=== PATIENT | male | born 1960 | race African-American/Black ===

== ENCOUNTER 2020-12-18 10:06 | Inpatient (IN) | payer OTHER ==
[2020-12-18 10:24] VITALS: BMI 20.2
[2020-12-18] MEDS ORDERED: hydrOXYzine PAMOATE 25 MG CAPSULE (FP) PO PRN (13:41)
[2020-12-18] MEDS ORDERED: guaiFENesin 200 MG/10 ML 10 ML UNIT-DOSE CUPS PO PRN (13:41)
[2020-12-18] MEDS ORDERED: IBUPROFEN 400 MG TABLET (FP) PO PRN (13:41)
[2020-12-18] MEDS ORDERED: NICOTINE POLACRILEX 2 MG GUM BC PRN (13:41)
[2020-12-18] MEDS ORDERED: MAGNESIUM CITRATE 300 ML BOTTLE PO PRN (13:41)
[2020-12-18] MEDS ORDERED: MAG HYDROX/AL HYDROX/SIMETH 30 ML UNIT-DOSE CUP PO PRN (13:41)
[2020-12-18] MEDS ORDERED: LOPERAMIDE HCL 2 MG CAPSULE PO PRN (13:41)
[2020-12-18] MEDS ORDERED: ACETAMINOPHEN 325 MG TABLET (FP) PO PRN (13:41)
[2020-12-18] MEDS ORDERED: MAGNESIUM HYDROX 2400MG/30ML ORAL SUSPENSION 30 ML CUP PO PRN (13:41)
[2020-12-18] MEDS ORDERED: P-EPHED 60MG/TRIPROLIDI 2.5MG TABLET PO PRN (13:41)
[2020-12-18] MEDS: THIAMINE HCL 100 MG TABLET (FP) PO SCH (21:10)
[2020-12-18] MEDS: MELATONIN 5 MG TABLETS PO SCH (21:10)
[2020-12-19] MEDS: PRENATAL VITAMINS W/ FOLIC ACID TABLET (FP) PO SCH (09:48)
[2020-12-19 10:42] LABS: HEMATOCRIT 37.4 % (35.4-49); MCH 31.5 pg (25.7-33.7); MCHC 34.8 g/dl (32.0-35.9); MEAN CELL VOLUME 90.6 fl (80-96); MEAN PLT VOLUME 8.6 fl (7.5-11.1); PLATELET COUNT 176 K/MM3 (134-434); RBC 4.12 M/mm3 (4.00-5.60); WHITE BLOOD COUNT 4.4 K/mm3 (4.0-10.0)
[2020-12-19 10:53] LABS: CALCIUM 8.1 mg/dL (8.5-10.1)
[2020-12-19 10:54] LABS: ALBUMIN 2.9 g/dl (3.4-5.0); BLOOD UREA NITROGEN 16.5 mg/dL (7-18)
[2020-12-19 10:56] LABS: CREATININE 0.9 mg/dL (0.55-1.3)
[2020-12-19 10:58] LABS: BILIRUBIN,TOTAL 0.6 mg/dL (0.2-1)
[2020-12-19 10:59] LABS: TOT PROT 5.8 g/dl (6.4-8.2)
[2020-12-19 14:24] LABS: HIV INTERPRETATION PRESUMPTIVE POSITIVE (NEGATIVE)
[2020-12-19] MEDS ORDERED: MASKS NR ONE (16:44)
[2020-12-19] MEDS: traZODone HCL 100 MG TABLET (FP) PO SCH (21:18)
[2020-12-19] MEDS: THIAMINE HCL 100 MG TABLET (FP) PO SCH (21:18)
[2020-12-19] MEDS: MELATONIN 5 MG TABLETS PO SCH (21:20)
[2020-12-20] MEDS: PRENATAL VITAMINS W/ FOLIC ACID TABLET (FP) PO SCH (09:59)
[2020-12-20] MEDS: DOCUSATE SODIUM 100 MG CAPSULE (FP) PO SCH ×2 (13:57→21:16)
[2020-12-20] MEDS: traZODone HCL 100 MG TABLET (FP) PO SCH (21:16)
[2020-12-20] MEDS: THIAMINE HCL 100 MG TABLET (FP) PO SCH (21:16)
[2020-12-20] MEDS: MELATONIN 5 MG TABLETS PO SCH (21:16)
[2020-12-21] MEDS: DOCUSATE SODIUM 100 MG CAPSULE (FP) PO SCH ×3 (06:25→21:43)
[2020-12-21] MEDS ORDERED: MASKS NR ONE (07:05)
[2020-12-21] MEDS: PRENATAL VITAMINS W/ FOLIC ACID TABLET (FP) PO SCH (09:35)
[2020-12-21] MEDS: THIAMINE HCL 100 MG TABLET (FP) PO SCH (21:43)
[2020-12-21] MEDS: traZODone HCL 100 MG TABLET (FP) PO SCH (21:43)
[2020-12-21] MEDS: MELATONIN 5 MG TABLETS PO SCH (21:43)
[2020-12-22 06:08] LABS: SARS-CoV-2 NAA Not Detected (Not Detected)
[2020-12-22] MEDS: DOCUSATE SODIUM 100 MG CAPSULE (FP) PO SCH ×3 (07:47→21:16)
[2020-12-22] MEDS: PRENATAL VITAMINS W/ FOLIC ACID TABLET (FP) PO SCH (09:37)
[2020-12-22] MEDS: MELATONIN 5 MG TABLETS PO SCH (21:15)
[2020-12-22] MEDS: THIAMINE HCL 100 MG TABLET (FP) PO SCH (21:16)
[2020-12-22] MEDS: traZODone HCL 100 MG TABLET (FP) PO SCH (21:16)
[2020-12-23] MEDS ORDERED: MASKS NR ONE (06:41)
[2020-12-23] MEDS: DOCUSATE SODIUM 100 MG CAPSULE (FP) PO SCH ×3 (06:42→21:32)
[2020-12-23] MEDS: PRENATAL VITAMINS W/ FOLIC ACID TABLET (FP) PO SCH (09:32)
[2020-12-23] MEDS: THIAMINE HCL 100 MG TABLET (FP) PO SCH (21:32)
[2020-12-23] MEDS: traZODone HCL 100 MG TABLET (FP) PO SCH (21:32)
[2020-12-23] MEDS: MELATONIN 5 MG TABLETS PO SCH (21:33)
[2020-12-24] MEDS: DOCUSATE SODIUM 100 MG CAPSULE (FP) PO SCH ×3 (06:43→21:09)
[2020-12-24] MEDS: PRENATAL VITAMINS W/ FOLIC ACID TABLET (FP) PO SCH (09:23)
[2020-12-24] MEDS: traZODone HCL 100 MG TABLET (FP) PO SCH (21:09)
[2020-12-24] MEDS: THIAMINE HCL 100 MG TABLET (FP) PO SCH (21:09)
[2020-12-24] MEDS: MELATONIN 5 MG TABLETS PO SCH (21:10)
[2020-12-25] MEDS: DOCUSATE SODIUM 100 MG CAPSULE (FP) PO SCH ×3 (06:42→21:01)
[2020-12-25] MEDS: PRENATAL VITAMINS W/ FOLIC ACID TABLET (FP) PO SCH (09:18)
[2020-12-25] MEDS: traZODone HCL 100 MG TABLET (FP) PO SCH (21:01)
[2020-12-25] MEDS: THIAMINE HCL 100 MG TABLET (FP) PO SCH (21:01)
[2020-12-25] MEDS: MELATONIN 5 MG TABLETS PO SCH (21:02)
[2020-12-26] MEDS: DOCUSATE SODIUM 100 MG CAPSULE (FP) PO SCH ×3 (06:56→21:35)
[2020-12-26] MEDS: PRENATAL VITAMINS W/ FOLIC ACID TABLET (FP) PO SCH (09:36)
[2020-12-26] MEDS: BICTEGRAV/EMTRICIT/TENOFOV (BIKTARVY) 50-200-25 MG TABLET PO SCH (16:01)
[2020-12-26] MEDS: CYPROHEPTADINE HCL 4 MG TABLET PO SCH (16:02)
[2020-12-26] MEDS: traZODone HCL 100 MG TABLET (FP) PO SCH (21:35)
[2020-12-26] MEDS: THIAMINE HCL 100 MG TABLET (FP) PO SCH (21:35)
[2020-12-26] MEDS: MELATONIN 5 MG TABLETS PO SCH (21:48)
[2020-12-27] MEDS: DOCUSATE SODIUM 100 MG CAPSULE (FP) PO SCH ×3 (07:08→21:48)
[2020-12-27] MEDS: CYPROHEPTADINE HCL 4 MG TABLET PO SCH ×3 (07:09→17:33)
[2020-12-27] MEDS: BICTEGRAV/EMTRICIT/TENOFOV (BIKTARVY) 50-200-25 MG TABLET PO SCH (07:10)
[2020-12-27] MEDS: PRENATAL VITAMINS W/ FOLIC ACID TABLET (FP) PO SCH (09:49)
[2020-12-27] MEDS: traZODone HCL 100 MG TABLET (FP) PO SCH (21:48)
[2020-12-27] MEDS: MELATONIN 5 MG TABLETS PO SCH (21:48)
[2020-12-27] MEDS: THIAMINE HCL 100 MG TABLET (FP) PO SCH (21:48)
[2020-12-28] MEDS: CYPROHEPTADINE HCL 4 MG TABLET PO SCH ×3 (06:58→17:39)
[2020-12-28] MEDS: DOCUSATE SODIUM 100 MG CAPSULE (FP) PO SCH ×3 (06:58→23:17)
[2020-12-28] MEDS: BICTEGRAV/EMTRICIT/TENOFOV (BIKTARVY) 50-200-25 MG TABLET PO SCH (07:00)
[2020-12-28] MEDS: PRENATAL VITAMINS W/ FOLIC ACID TABLET (FP) PO SCH (09:46)
[2020-12-28] MEDS ORDERED: PT OWN MED DRAWER 7, Y5N ONE (16:44)
[2020-12-28] MEDS: traZODone HCL 100 MG TABLET (FP) PO SCH (23:17)
[2020-12-28] MEDS: MELATONIN 5 MG TABLETS PO SCH (23:17)
[2020-12-28] MEDS: THIAMINE HCL 100 MG TABLET (FP) PO SCH (23:17)
[2020-12-29] MEDS: DOCUSATE SODIUM 100 MG CAPSULE (FP) PO SCH ×3 (07:01→21:19)
[2020-12-29] MEDS: CYPROHEPTADINE HCL 4 MG TABLET PO SCH ×3 (07:01→16:44)
[2020-12-29] MEDS: BICTEGRAV/EMTRICIT/TENOFOV (BIKTARVY) 50-200-25 MG TABLET PO SCH (07:40)
[2020-12-29] MEDS: PRENATAL VITAMINS W/ FOLIC ACID TABLET (FP) PO SCH (09:40)
[2020-12-29] MEDS: THIAMINE HCL 100 MG TABLET (FP) PO SCH (21:19)
[2020-12-29] MEDS: traZODone HCL 100 MG TABLET (FP) PO SCH (21:19)
[2020-12-29] MEDS: MELATONIN 5 MG TABLETS PO SCH (21:20)
[2020-12-30] MEDS: CYPROHEPTADINE HCL 4 MG TABLET PO SCH ×3 (06:51→16:52)
[2020-12-30] MEDS: DOCUSATE SODIUM 100 MG CAPSULE (FP) PO SCH ×3 (06:51→21:55)
[2020-12-30] MEDS: BICTEGRAV/EMTRICIT/TENOFOV (BIKTARVY) 50-200-25 MG TABLET PO SCH (07:54)
[2020-12-30] MEDS: PRENATAL VITAMINS W/ FOLIC ACID TABLET (FP) PO SCH (09:34)
[2020-12-30 11:08] LABS: SARS-CoV-2 NAA Not Detected (Not Detected)
[2020-12-30] MEDS: THIAMINE HCL 100 MG TABLET (FP) PO SCH (21:55)
[2020-12-30] MEDS: traZODone HCL 100 MG TABLET (FP) PO SCH (21:55)
[2020-12-30] MEDS: MELATONIN 5 MG TABLETS PO SCH (22:09)
[2020-12-31] MEDS: CYPROHEPTADINE HCL 4 MG TABLET PO SCH ×3 (07:17→17:18)
[2020-12-31] MEDS: DOCUSATE SODIUM 100 MG CAPSULE (FP) PO SCH ×3 (07:17→21:46)
[2020-12-31] MEDS: BICTEGRAV/EMTRICIT/TENOFOV (BIKTARVY) 50-200-25 MG TABLET PO SCH (07:20)
[2020-12-31] MEDS: PRENATAL VITAMINS W/ FOLIC ACID TABLET (FP) PO SCH (09:41)
[2020-12-31] MEDS: traZODone HCL 100 MG TABLET (FP) PO SCH (21:46)
[2020-12-31] MEDS: MELATONIN 5 MG TABLETS PO SCH (21:46)
[2020-12-31] MEDS: THIAMINE HCL 100 MG TABLET (FP) PO SCH (21:46)
[2021-01-01] MEDS: DOCUSATE SODIUM 100 MG CAPSULE (FP) PO SCH ×3 (06:45→21:12)
[2021-01-01] MEDS: CYPROHEPTADINE HCL 4 MG TABLET PO SCH ×3 (06:46→17:56)
[2021-01-01] MEDS: BICTEGRAV/EMTRICIT/TENOFOV (BIKTARVY) 50-200-25 MG TABLET PO SCH (07:11)
[2021-01-01] MEDS: PRENATAL VITAMINS W/ FOLIC ACID TABLET (FP) PO SCH (09:54)
[2021-01-01] MEDS: traZODone HCL 100 MG TABLET (FP) PO SCH (21:12)
[2021-01-01] MEDS: THIAMINE HCL 100 MG TABLET (FP) PO SCH (21:12)
[2021-01-01] MEDS: MELATONIN 5 MG TABLETS PO SCH (21:13)
[2021-01-02 07:12] VITALS: BP 107/69; PULSE 72; TEMP 98.1
[2021-01-02] MEDS: CYPROHEPTADINE HCL 4 MG TABLET PO SCH (07:22)
[2021-01-02] MEDS: DOCUSATE SODIUM 100 MG CAPSULE (FP) PO SCH (07:23)
[2021-01-02] MEDS: BICTEGRAV/EMTRICIT/TENOFOV (BIKTARVY) 50-200-25 MG TABLET PO SCH (07:23)
[2021-01-02] MEDS: PRENATAL VITAMINS W/ FOLIC ACID TABLET (FP) PO SCH (10:05)
== END 2021-01-02 10:14 | disposition home or self-care (01) | DRG 772 ==
LOC: YASAS 10:06 → Y3E 13:28 → Y5N 16:32
PROVIDERS: ADMIT Allergy & Immunology; ATTEND Allergy & Immunology
PROC: HZ42ZZZ Group Counseling for Substance Abuse Treatment, Cognitive-Behavioral (ICD-10-PCS; principal; 2020-12-18)
DX: F10.20 Alcohol dependence, uncomplicated (principal); F14.20 Cocaine dependence, uncomplicated; F17.210 Nicotine dependence, cigarettes, uncomplicated; F33.1 Major depressive disorder, recurrent, moderate; F19.282 Other psychoactive substance dependence with psychoactive substance-induced sleep disorder; F19.24 Other psychoactive substance dependence with psychoactive substance-induced mood disorder; Z21 Asymptomatic human immunodeficiency virus [HIV] infection status; K64.9 Unspecified hemorrhoids; R76.11 Nonspecific reaction to tuberculin skin test without active tuberculosis; Z62.810 Personal history of physical and sexual abuse in childhood; Z86.19 Personal history of other infectious and parasitic diseases
CPT/HCPCS: 36415; 71046-TC-FY; 80053; 85027; 86593; 86780; 87389; C9803; U0003; U0005

== ENCOUNTER 2022-10-19 18:26 | Inpatient (IN) | payer OTHER ==
[2022-10-19 21:03] VITALS: BMI 19.8
[2022-10-19] MEDS ORDERED: IBUPROFEN 400 MG TABLET (FP) PO PRN (22:11)
[2022-10-19] MEDS ORDERED: P-EPHED 60MG/TRIPROLIDI 2.5MG TABLET PO PRN (22:11)
[2022-10-19] MEDS ORDERED: MAGNESIUM HYDROX 2400MG/30ML ORAL SUSPENSION 30 ML CUP PO PRN (22:11)
[2022-10-19] MEDS ORDERED: ACETAMINOPHEN 325 MG TABLET (FP) PO PRN (22:11)
[2022-10-19] MEDS ORDERED: NICOTINE POLACRILEX 2 MG GUM BC PRN (22:11)
[2022-10-19] MEDS ORDERED: MAG HYDROX/AL HYDROX/SIMETH 30 ML UNIT-DOSE CUP PO PRN (22:11)
[2022-10-19] MEDS ORDERED: LOPERAMIDE HCL 2 MG CAPSULE PO PRN (22:11)
[2022-10-19] MEDS ORDERED: hydrOXYzine PAMOATE 25 MG CAPSULE (FP) PO PRN (22:11)
[2022-10-19] MEDS ORDERED: POLYETHYLENE GLYCOL (HEALTHYLAX) 3350 17 GM PACKET PO PRN (22:11)
[2022-10-20] MEDS: MELATONIN 5 MG TABLETS PO SCH ×2 (01:17→21:25)
[2022-10-20] MEDS: guaiFENesin 200 MG/10 ML 10 ML UNIT-DOSE CUPS PO PRN ×2 (01:19→10:04)
[2022-10-20] MEDS: NICOTINE 14 MG/24 HOURS TOPICAL PATCH TD SCH (10:03)
[2022-10-20] MEDS: PRENATAL VITAMINS W/ FOLIC ACID TABLET (FP) PO SCH (10:03)
[2022-10-20] MEDS: BICTEGRAV/EMTRICIT/TENOFOV (BIKTARVY) 50-200-25 MG TABLET PO SCH (10:40)
[2022-10-20] MEDS: THIAMINE HCL 100 MG TABLET (FP) PO SCH (21:25)
[2022-10-20] MEDS: traZODone HCL 100 MG TABLET (FP) PO SCH (21:26)
[2022-10-20 22:04] LABS: URINE APPEARANCE CLEAR; URINE BILIRUBIN NEGATIVE (NEGATIVE); URINE COLOR YELLOW; URINE GLUCOSE (UA) NEGATIVE (NEGATIVE); URINE KETONE NEGATIVE (NEGATIVE); URINE LEUK ESTERASE NEGATIVE (NEGATIVE); URINE NITRITE NEGATIVE (NEGATIVE); URINE PROTEIN NEGATIVE (NEGATIVE); URINE UROBILINOGEN 0.2 mg/dL (0.2-1.0)
[2022-10-21] MEDS: BICTEGRAV/EMTRICIT/TENOFOV (BIKTARVY) 50-200-25 MG TABLET PO SCH (09:06)
[2022-10-21] MEDS: PRENATAL VITAMINS W/ FOLIC ACID TABLET (FP) PO SCH (09:06)
[2022-10-21] MEDS: BENZOCAINE/MENTHOL (CHLORASEPTIC ) LOZENGE MM PRN (09:07)
[2022-10-21] MEDS: NICOTINE 14 MG/24 HOURS TOPICAL PATCH TD SCH (09:30)
[2022-10-21] MEDS: MELATONIN 5 MG TABLETS PO SCH (21:18)
[2022-10-21] MEDS: traZODone HCL 100 MG TABLET (FP) PO SCH (21:18)
[2022-10-21] MEDS: THIAMINE HCL 100 MG TABLET (FP) PO SCH (21:18)
[2022-10-21] MEDS: guaiFENesin 200 MG/10 ML 10 ML UNIT-DOSE CUPS PO PRN (22:04)
[2022-10-22] MEDS ORDERED: NICOTINE 14 MG/24 HOURS TOPICAL PATCH TD PRN (08:51)
[2022-10-22] MEDS: BICTEGRAV/EMTRICIT/TENOFOV (BIKTARVY) 50-200-25 MG TABLET PO SCH (10:25)
[2022-10-22] MEDS: PRENATAL VITAMINS W/ FOLIC ACID TABLET (FP) PO SCH (10:25)
[2022-10-22] MEDS: BENZOCAINE/MENTHOL (CHLORASEPTIC ) LOZENGE MM PRN (14:16)
[2022-10-22] MEDS: guaiFENesin 200 MG/10 ML 10 ML UNIT-DOSE CUPS PO PRN (14:16)
[2022-10-22 14:53] LABS: HEMATOCRIT 37.5 % (35.4-49); HEMOGLOBIN 12.3 GM/dL (11.7-16.9); MCH 30.6 pg (25.7-33.7); MCHC 32.9 g/dl (32.0-35.9); MEAN CELL VOLUME 92.9 fl (80-96); MEAN PLT VOLUME 9.6 fl (7.5-11.1); PLATELET COUNT 196 10^3/uL (134-434); RBC 4.03 M/mm3 (4.00-5.60); RDW 14.7 % (11.9-15.9)
[2022-10-22 15:16] LABS: CALCIUM 8.7 mg/dL (8.5-10.1)
[2022-10-22 15:17] LABS: ALBUMIN 2.9 g/dl (3.4-5.0)
[2022-10-22 15:21] LABS: BILIRUBIN,TOTAL 0.2 mg/dL (0.2-1)
[2022-10-22 16:15] LABS: SYPHILIS W/ RPR CONF REACTIVE (NONREACTIVE)
[2022-10-22] MEDS: MELATONIN 5 MG TABLETS PO SCH (21:29)
[2022-10-22] MEDS: THIAMINE HCL 100 MG TABLET (FP) PO SCH (21:29)
[2022-10-22] MEDS: traZODone HCL 100 MG TABLET (FP) PO SCH (21:31)
[2022-10-23 06:53] VITALS: RESP 20
[2022-10-23] MEDS: PRENATAL VITAMINS W/ FOLIC ACID TABLET (FP) PO SCH (10:07)
[2022-10-23] MEDS: BICTEGRAV/EMTRICIT/TENOFOV (BIKTARVY) 50-200-25 MG TABLET PO SCH (10:07)
[2022-10-23] MEDS ORDERED: COLLOIDAL OATMEAL 1 BAR EACH TP PRN (11:59)
[2022-10-23] MEDS: traZODone HCL 100 MG TABLET (FP) PO SCH (21:49)
[2022-10-23] MEDS: THIAMINE HCL 100 MG TABLET (FP) PO SCH (21:49)
[2022-10-23] MEDS: MELATONIN 5 MG TABLETS PO SCH (21:49)
[2022-10-24 06:49] VITALS: BP 132/80; PULSE 59; TEMP 97.2
== END 2022-10-24 07:30 | disposition home or self-care (01) | DRG 772 ==
LOC: SUATTDRO 18:26 → YASAS 18:26 → Y3E 10-20 00:52
PROVIDERS: ADMIT Allergy & Immunology; ATTEND Psychiatry & Neurology Pain Medicine
PROC: HZ42ZZZ Group Counseling for Substance Abuse Treatment, Cognitive-Behavioral (ICD-10-PCS; principal; 2022-10-20)
DX: F10.20 Alcohol dependence, uncomplicated (principal); F14.20 Cocaine dependence, uncomplicated; F17.210 Nicotine dependence, cigarettes, uncomplicated; F19.282 Other psychoactive substance dependence with psychoactive substance-induced sleep disorder; F19.24 Other psychoactive substance dependence with psychoactive substance-induced mood disorder; F32.9 Major depressive disorder, single episode, unspecified; B20 Human immunodeficiency virus [HIV] disease; Z79.899 Other long term (current) drug therapy; L85.3 Xerosis cutis; R76.11 Nonspecific reaction to tuberculin skin test without active tuberculosis
CPT/HCPCS: 36415; 71046-TC-FY; 80053; 81003; 85027; 86593; 86780; 86803; 93005; 93010; C9803-CS; U0003; U0005

== ENCOUNTER 2022-10-24 15:55 | Inpatient (IN) | payer OTHER ==
[2022-10-24 18:25] VITALS: BMI 20.7
[2022-10-24] MEDS ORDERED: IBUPROFEN 400 MG TABLET (FP) PO PRN (18:28)
[2022-10-24] MEDS ORDERED: P-EPHED 60MG/TRIPROLIDI 2.5MG TABLET PO PRN (18:28)
[2022-10-24] MEDS ORDERED: BENZOCAINE/MENTHOL (CHLORASEPTIC ) LOZENGE MM PRN (18:28)
[2022-10-24] MEDS ORDERED: LOPERAMIDE HCL 2 MG CAPSULE PO PRN (18:28)
[2022-10-24] MEDS ORDERED: NICOTINE 10 MG CARTRIDGE (INHALER) IH PRN (18:28)
[2022-10-24] MEDS ORDERED: MAG HYDROX/AL HYDROX/SIMETH 30 ML UNIT-DOSE CUP PO PRN (18:28)
[2022-10-24] MEDS ORDERED: ACETAMINOPHEN 325 MG TABLET (FP) PO PRN (18:28)
[2022-10-24] MEDS ORDERED: guaiFENesin 200 MG/10 ML 10 ML UNIT-DOSE CUPS PO PRN (18:28)
[2022-10-24] MEDS ORDERED: POLYETHYLENE GLYCOL (HEALTHYLAX) 3350 17 GM PACKET PO PRN (18:28)
[2022-10-24] MEDS: MELATONIN 5 MG TABLETS PO SCH (22:54)
[2022-10-24] MEDS: THIAMINE HCL 100 MG TABLET (FP) PO SCH (22:54)
[2022-10-25] MEDS: NICOTINE 7 MG/24 HOURS TOPICAL PATCH TD SCH (09:50)
[2022-10-25] MEDS: PRENATAL VITAMINS W/ FOLIC ACID TABLET (FP) PO SCH (09:50)
[2022-10-25] MEDS: BICTEGRAV/EMTRICIT/TENOFOV (BIKTARVY) 50-200-25 MG TABLET PO SCH (12:14)
[2022-10-25] MEDS: THIAMINE HCL 100 MG TABLET (FP) PO SCH (21:27)
[2022-10-25] MEDS: MELATONIN 5 MG TABLETS PO SCH (21:27)
[2022-10-25] MEDS: hydrOXYzine PAMOATE 25 MG CAPSULE (FP) PO PRN (21:28)
[2022-10-26 01:26] LABS: PH,URINE 7.5 (5.0-8.0); URINE APPEARANCE CLEAR; URINE BILIRUBIN NEGATIVE (NEGATIVE); URINE COLOR YELLOW; URINE GLUCOSE (UA) NEGATIVE (NEGATIVE); URINE KETONE NEGATIVE (NEGATIVE); URINE LEUK ESTERASE NEGATIVE (NEGATIVE); URINE NITRITE NEGATIVE (NEGATIVE); URINE PROTEIN NEGATIVE (NEGATIVE); URINE UROBILINOGEN 0.2 mg/dL (0.2-1.0)
[2022-10-26] MEDS: BICTEGRAV/EMTRICIT/TENOFOV (BIKTARVY) 50-200-25 MG TABLET PO SCH (07:33)
[2022-10-26] MEDS: PRENATAL VITAMINS W/ FOLIC ACID TABLET (FP) PO SCH (09:48)
[2022-10-26] MEDS: NICOTINE 7 MG/24 HOURS TOPICAL PATCH TD SCH (09:49)
[2022-10-26] MEDS: MELATONIN 5 MG TABLETS PO SCH (21:43)
[2022-10-26] MEDS: THIAMINE HCL 100 MG TABLET (FP) PO SCH (21:43)
[2022-10-27] MEDS: MAGNESIUM HYDROX 2400MG/30ML ORAL SUSPENSION 30 ML CUP PO PRN (07:02)
[2022-10-27] MEDS: BICTEGRAV/EMTRICIT/TENOFOV (BIKTARVY) 50-200-25 MG TABLET PO SCH (07:23)
[2022-10-27] MEDS: NICOTINE 7 MG/24 HOURS TOPICAL PATCH TD SCH (09:56)
[2022-10-27] MEDS: PRENATAL VITAMINS W/ FOLIC ACID TABLET (FP) PO SCH (09:56)
[2022-10-27] MEDS: MELATONIN 5 MG TABLETS PO SCH (21:45)
[2022-10-27] MEDS: THIAMINE HCL 100 MG TABLET (FP) PO SCH (21:45)
[2022-10-27] MEDS: hydrOXYzine PAMOATE 25 MG CAPSULE (FP) PO PRN (21:45)
[2022-10-28] MEDS: BICTEGRAV/EMTRICIT/TENOFOV (BIKTARVY) 50-200-25 MG TABLET PO SCH (07:50)
[2022-10-28] MEDS: MAGNESIUM HYDROX 2400MG/30ML ORAL SUSPENSION 30 ML CUP PO PRN (07:54)
[2022-10-28] MEDS: NICOTINE 7 MG/24 HOURS TOPICAL PATCH TD SCH (10:43)
[2022-10-28] MEDS: PRENATAL VITAMINS W/ FOLIC ACID TABLET (FP) PO SCH (10:43)
[2022-10-28] MEDS: THIAMINE HCL 100 MG TABLET (FP) PO SCH (21:14)
[2022-10-28] MEDS: traZODone HCL 50 MG TABLET (FP) PO SCH (21:14)
[2022-10-28] MEDS: DOCUSATE SODIUM 100 MG CAPSULE (FP) PO PRN (21:14)
[2022-10-29] MEDS: BICTEGRAV/EMTRICIT/TENOFOV (BIKTARVY) 50-200-25 MG TABLET PO SCH (07:04)
[2022-10-29] MEDS: NICOTINE 7 MG/24 HOURS TOPICAL PATCH TD SCH (10:28)
[2022-10-29] MEDS: PRENATAL VITAMINS W/ FOLIC ACID TABLET (FP) PO SCH (10:28)
[2022-10-29] MEDS: MAGNESIUM HYDROX 2400MG/30ML ORAL SUSPENSION 30 ML CUP PO PRN (10:30)
[2022-10-29] MEDS ORDERED: COLLOIDAL OATMEAL 1 BAR EACH TP PRN (15:40)
[2022-10-29] MEDS: THIAMINE HCL 100 MG TABLET (FP) PO SCH (21:35)
[2022-10-29] MEDS: hydrOXYzine PAMOATE 25 MG CAPSULE (FP) PO PRN (21:35)
[2022-10-29] MEDS: traZODone HCL 50 MG TABLET (FP) PO SCH (21:35)
[2022-10-29] MEDS: DOCUSATE SODIUM 100 MG CAPSULE (FP) PO PRN (21:35)
[2022-10-30] MEDS: BICTEGRAV/EMTRICIT/TENOFOV (BIKTARVY) 50-200-25 MG TABLET PO SCH (07:12)
[2022-10-30] MEDS: PRENATAL VITAMINS W/ FOLIC ACID TABLET (FP) PO SCH (10:16)
[2022-10-30] MEDS: NICOTINE 7 MG/24 HOURS TOPICAL PATCH TD SCH (10:16)
[2022-10-30] MEDS: THIAMINE HCL 100 MG TABLET (FP) PO SCH (21:10)
[2022-10-30] MEDS: DOCUSATE SODIUM 100 MG CAPSULE (FP) PO PRN (21:10)
[2022-10-30] MEDS: traZODone HCL 50 MG TABLET (FP) PO SCH (21:11)
[2022-10-31] MEDS: BICTEGRAV/EMTRICIT/TENOFOV (BIKTARVY) 50-200-25 MG TABLET PO SCH (07:28)
[2022-10-31] MEDS: PRENATAL VITAMINS W/ FOLIC ACID TABLET (FP) PO SCH (09:52)
[2022-10-31] MEDS: THIAMINE HCL 100 MG TABLET (FP) PO SCH (21:36)
[2022-10-31] MEDS: traZODone HCL 50 MG TABLET (FP) PO SCH (21:37)
[2022-11-01] MEDS: BICTEGRAV/EMTRICIT/TENOFOV (BIKTARVY) 50-200-25 MG TABLET PO SCH (07:06)
[2022-11-01] MEDS: PRENATAL VITAMINS W/ FOLIC ACID TABLET (FP) PO SCH (09:54)
[2022-11-01] MEDS: DOCUSATE SODIUM 100 MG CAPSULE (FP) PO PRN ×2 (09:55→21:22)
[2022-11-01] MEDS: THIAMINE HCL 100 MG TABLET (FP) PO SCH (21:22)
[2022-11-01] MEDS: traZODone HCL 50 MG TABLET (FP) PO SCH (21:22)
[2022-11-02] MEDS: BICTEGRAV/EMTRICIT/TENOFOV (BIKTARVY) 50-200-25 MG TABLET PO SCH (07:28)
[2022-11-02] MEDS: PRENATAL VITAMINS W/ FOLIC ACID TABLET (FP) PO SCH (09:48)
[2022-11-02] MEDS: traZODone HCL 50 MG TABLET (FP) PO SCH (21:42)
[2022-11-02] MEDS: THIAMINE HCL 100 MG TABLET (FP) PO SCH (21:43)
[2022-11-03] MEDS: BICTEGRAV/EMTRICIT/TENOFOV (BIKTARVY) 50-200-25 MG TABLET PO SCH (07:15)
[2022-11-03] MEDS: PRENATAL VITAMINS W/ FOLIC ACID TABLET (FP) PO SCH (09:56)
[2022-11-03] MEDS: THIAMINE HCL 100 MG TABLET (FP) PO SCH (22:04)
[2022-11-03] MEDS: traZODone HCL 50 MG TABLET (FP) PO SCH (22:04)
[2022-11-04] MEDS: BICTEGRAV/EMTRICIT/TENOFOV (BIKTARVY) 50-200-25 MG TABLET PO SCH (07:14)
[2022-11-04] MEDS: PRENATAL VITAMINS W/ FOLIC ACID TABLET (FP) PO SCH (09:37)
[2022-11-04] MEDS: THIAMINE HCL 100 MG TABLET (FP) PO SCH (21:35)
[2022-11-04] MEDS: traZODone HCL 50 MG TABLET (FP) PO SCH (21:35)
[2022-11-05] MEDS: BICTEGRAV/EMTRICIT/TENOFOV (BIKTARVY) 50-200-25 MG TABLET PO SCH (07:18)
[2022-11-05] MEDS: PRENATAL VITAMINS W/ FOLIC ACID TABLET (FP) PO SCH (09:43)
[2022-11-05] MEDS: MAGNESIUM HYDROX 2400MG/30ML ORAL SUSPENSION 30 ML CUP PO PRN (09:44)
[2022-11-05] MEDS: THIAMINE HCL 100 MG TABLET (FP) PO SCH (21:24)
[2022-11-05] MEDS: traZODone HCL 50 MG TABLET (FP) PO SCH (21:24)
[2022-11-05] MEDS: DOCUSATE SODIUM 100 MG CAPSULE (FP) PO PRN (21:24)
[2022-11-06] MEDS: BICTEGRAV/EMTRICIT/TENOFOV (BIKTARVY) 50-200-25 MG TABLET PO SCH (07:20)
[2022-11-06] MEDS: PRENATAL VITAMINS W/ FOLIC ACID TABLET (FP) PO SCH (09:42)
[2022-11-06] MEDS: hydrOXYzine PAMOATE 25 MG CAPSULE (FP) PO PRN (22:05)
[2022-11-06] MEDS: DOCUSATE SODIUM 100 MG CAPSULE (FP) PO PRN (22:06)
[2022-11-06] MEDS: THIAMINE HCL 100 MG TABLET (FP) PO SCH (22:06)
[2022-11-06] MEDS: traZODone HCL 50 MG TABLET (FP) PO SCH (22:06)
[2022-11-07] MEDS: BICTEGRAV/EMTRICIT/TENOFOV (BIKTARVY) 50-200-25 MG TABLET PO SCH (07:17)
[2022-11-07] MEDS: PRENATAL VITAMINS W/ FOLIC ACID TABLET (FP) PO SCH (10:11)
[2022-11-07] MEDS: traZODone HCL 50 MG TABLET (FP) PO SCH (21:13)
[2022-11-07] MEDS: DOCUSATE SODIUM 100 MG CAPSULE (FP) PO PRN (21:13)
[2022-11-07] MEDS: THIAMINE HCL 100 MG TABLET (FP) PO SCH (21:13)
[2022-11-07] MEDS: hydrOXYzine PAMOATE 25 MG CAPSULE (FP) PO PRN (21:14)
[2022-11-08] MEDS: BICTEGRAV/EMTRICIT/TENOFOV (BIKTARVY) 50-200-25 MG TABLET PO SCH (07:25)
[2022-11-08] MEDS: PRENATAL VITAMINS W/ FOLIC ACID TABLET (FP) PO SCH (10:11)
[2022-11-08] MEDS: traZODone HCL 50 MG TABLET (FP) PO SCH (21:25)
[2022-11-08] MEDS: THIAMINE HCL 100 MG TABLET (FP) PO SCH (21:25)
[2022-11-09] MEDS: BICTEGRAV/EMTRICIT/TENOFOV (BIKTARVY) 50-200-25 MG TABLET PO SCH (07:04)
[2022-11-09] MEDS: PRENATAL VITAMINS W/ FOLIC ACID TABLET (FP) PO SCH (10:04)
[2022-11-09] MEDS: THIAMINE HCL 100 MG TABLET (FP) PO SCH (21:41)
[2022-11-09] MEDS: traZODone HCL 50 MG TABLET (FP) PO SCH ×2 (21:41→22:39)
[2022-11-10] MEDS: BICTEGRAV/EMTRICIT/TENOFOV (BIKTARVY) 50-200-25 MG TABLET PO SCH (07:54)
[2022-11-10] MEDS: PRENATAL VITAMINS W/ FOLIC ACID TABLET (FP) PO SCH (09:39)
[2022-11-10] MEDS: DOCUSATE SODIUM 100 MG CAPSULE (FP) PO PRN (09:39)
[2022-11-10] MEDS: THIAMINE HCL 100 MG TABLET (FP) PO SCH (22:16)
[2022-11-10] MEDS: traZODone HCL 50 MG TABLET (FP) PO SCH (22:16)
[2022-11-11] MEDS: BICTEGRAV/EMTRICIT/TENOFOV (BIKTARVY) 50-200-25 MG TABLET PO SCH (07:11)
[2022-11-11] MEDS: PRENATAL VITAMINS W/ FOLIC ACID TABLET (FP) PO SCH (09:48)
[2022-11-11] MEDS: traZODone HCL 50 MG TABLET (FP) PO SCH (21:57)
[2022-11-11] MEDS: THIAMINE HCL 100 MG TABLET (FP) PO SCH (21:57)
[2022-11-12] MEDS: BICTEGRAV/EMTRICIT/TENOFOV (BIKTARVY) 50-200-25 MG TABLET PO SCH (07:00)
[2022-11-12] MEDS: PRENATAL VITAMINS W/ FOLIC ACID TABLET (FP) PO SCH (09:54)
[2022-11-12] MEDS: THIAMINE HCL 100 MG TABLET (FP) PO SCH (22:16)
[2022-11-12] MEDS: traZODone HCL 50 MG TABLET (FP) PO SCH (22:16)
[2022-11-13] MEDS: BICTEGRAV/EMTRICIT/TENOFOV (BIKTARVY) 50-200-25 MG TABLET PO SCH (07:04)
[2022-11-13] MEDS: PRENATAL VITAMINS W/ FOLIC ACID TABLET (FP) PO SCH (09:41)
[2022-11-13] MEDS: THIAMINE HCL 100 MG TABLET (FP) PO SCH (21:10)
[2022-11-13] MEDS: hydrOXYzine PAMOATE 25 MG CAPSULE (FP) PO PRN (21:10)
[2022-11-13] MEDS: traZODone HCL 50 MG TABLET (FP) PO SCH (21:10)
[2022-11-13] MEDS: DOCUSATE SODIUM 100 MG CAPSULE (FP) PO PRN (21:10)
[2022-11-14] MEDS: BICTEGRAV/EMTRICIT/TENOFOV (BIKTARVY) 50-200-25 MG TABLET PO SCH (07:01)
[2022-11-14] MEDS: PRENATAL VITAMINS W/ FOLIC ACID TABLET (FP) PO SCH (10:51)
[2022-11-14] MEDS: traZODone HCL 50 MG TABLET (FP) PO SCH (21:24)
[2022-11-14] MEDS: THIAMINE HCL 100 MG TABLET (FP) PO SCH (21:24)
[2022-11-15] MEDS: BICTEGRAV/EMTRICIT/TENOFOV (BIKTARVY) 50-200-25 MG TABLET PO SCH (07:18)
[2022-11-15] MEDS: PRENATAL VITAMINS W/ FOLIC ACID TABLET (FP) PO SCH (09:50)
[2022-11-15] MEDS: DOCUSATE SODIUM 100 MG CAPSULE (FP) PO PRN (21:20)
[2022-11-15] MEDS: traZODone HCL 50 MG TABLET (FP) PO SCH (21:20)
[2022-11-15] MEDS: THIAMINE HCL 100 MG TABLET (FP) PO SCH (21:20)
[2022-11-16] MEDS: BICTEGRAV/EMTRICIT/TENOFOV (BIKTARVY) 50-200-25 MG TABLET PO SCH (10:43)
[2022-11-16] MEDS: PRENATAL VITAMINS W/ FOLIC ACID TABLET (FP) PO SCH (10:43)
[2022-11-16] MEDS: THIAMINE HCL 100 MG TABLET (FP) PO SCH (21:45)
[2022-11-16] MEDS: traZODone HCL 50 MG TABLET (FP) PO SCH (21:45)
[2022-11-17] MEDS: BICTEGRAV/EMTRICIT/TENOFOV (BIKTARVY) 50-200-25 MG TABLET PO SCH (07:01)
[2022-11-17] MEDS: PRENATAL VITAMINS W/ FOLIC ACID TABLET (FP) PO SCH (10:09)
[2022-11-17] MEDS: THIAMINE HCL 100 MG TABLET (FP) PO SCH (21:35)
[2022-11-17] MEDS: traZODone HCL 50 MG TABLET (FP) PO SCH (21:35)
[2022-11-18] MEDS: BICTEGRAV/EMTRICIT/TENOFOV (BIKTARVY) 50-200-25 MG TABLET PO SCH (07:06)
[2022-11-18] MEDS: PRENATAL VITAMINS W/ FOLIC ACID TABLET (FP) PO SCH (09:48)
[2022-11-18] MEDS: THIAMINE HCL 100 MG TABLET (FP) PO SCH (21:26)
[2022-11-18] MEDS: traZODone HCL 50 MG TABLET (FP) PO SCH (21:26)
[2022-11-18] MEDS: DOCUSATE SODIUM 100 MG CAPSULE (FP) PO PRN (21:27)
[2022-11-19] MEDS: BICTEGRAV/EMTRICIT/TENOFOV (BIKTARVY) 50-200-25 MG TABLET PO SCH (07:05)
[2022-11-19] MEDS: PRENATAL VITAMINS W/ FOLIC ACID TABLET (FP) PO SCH (09:54)
[2022-11-19] MEDS: traZODone HCL 50 MG TABLET (FP) PO SCH (21:27)
[2022-11-19] MEDS: THIAMINE HCL 100 MG TABLET (FP) PO SCH (21:27)
[2022-11-19] MEDS: DOCUSATE SODIUM 100 MG CAPSULE (FP) PO PRN (21:27)
[2022-11-20] MEDS: BICTEGRAV/EMTRICIT/TENOFOV (BIKTARVY) 50-200-25 MG TABLET PO SCH (07:03)
[2022-11-20] MEDS: PRENATAL VITAMINS W/ FOLIC ACID TABLET (FP) PO SCH (10:09)
[2022-11-20] MEDS: THIAMINE HCL 100 MG TABLET (FP) PO SCH (22:49)
[2022-11-20] MEDS: traZODone HCL 50 MG TABLET (FP) PO SCH (22:49)
[2022-11-21 06:50] VITALS: BP 124/73; PULSE 76; RESP 16; TEMP 97.9
[2022-11-21] MEDS: BICTEGRAV/EMTRICIT/TENOFOV (BIKTARVY) 50-200-25 MG TABLET PO SCH (07:20)
[2022-11-21] MEDS: PRENATAL VITAMINS W/ FOLIC ACID TABLET (FP) PO SCH (09:04)
== END 2022-11-21 09:20 | disposition home or self-care (01) | DRG 772 ==
LOC: YASAS 15:55 → Y3E 22:25
PROVIDERS: ADMIT Allergy & Immunology; ATTEND Allergy & Immunology
PROC: HZ42ZZZ Group Counseling for Substance Abuse Treatment, Cognitive-Behavioral (ICD-10-PCS; principal; 2022-10-24)
DX: F10.20 Alcohol dependence, uncomplicated (principal); F14.20 Cocaine dependence, uncomplicated; F17.210 Nicotine dependence, cigarettes, uncomplicated; F19.282 Other psychoactive substance dependence with psychoactive substance-induced sleep disorder; F19.24 Other psychoactive substance dependence with psychoactive substance-induced mood disorder; F33.1 Major depressive disorder, recurrent, moderate; B20 Human immunodeficiency virus [HIV] disease; R07.9 Chest pain, unspecified; R76.11 Nonspecific reaction to tuberculin skin test without active tuberculosis; Z86.19 Personal history of other infectious and parasitic diseases
CPT/HCPCS: 81003; 93005; 93010; C9803-CS; U0003; U0005